=== PATIENT | female | born 1955 | race Caucasian/White ===

== ENCOUNTER → 2018-08-10 | Outpatient (CLI) | payer MEDICARE, MEDICAID ==
[2016-07-02 13:15] VITALS: BP 99/55
[~2018-08-10] MED LIST: ALPR0.5T PO; AMOX500C PO; AMOX500T PO; ATOR40TA59 PO; BUPR150T11 PO; CHOL500045 PO; CYAN10005 PO; CYCL5TAB PO; FENO145T30 PO; HYDR-3165 PO; IBUP800T19 PO; MAG DELAY64 MG PO; NAPR500T8 PO; PANT20TA58 PO; POTA20TA4 PO
--- NOTE | 2018-08-10 13:22 | RAD ---
CT HEAD INDICATION: CT HEAD - FELL ONE WEEK AGO, HIT HER HEAD ON FURNITURE LEFT FOREHEAD, FEELS UNSTEADY ON HER FEET COMPARISON: None Available. Exposure: One or more of the following individualized dose reduction techniques were utilized for this examination: 1. Automated exposure control 2. Adjustment of the mA and/or kV according to patient size 3. Use of iterative reconstruction technique TECHNIQUE: 5 mm contiguous axial images were obtained from the skull base to the vertex in both bone and soft tissue algorithm. FINDINGS: No abnormal attenuation within the brain parenchyma. No evidence of acute intracranial hemorrhage. No extra-axial fluid collections. No mass effect or midline shift. Ventricular size is appropriate. Basal cisterns are patent. No fractures identified.Sears-white differentiation is preserved.Globes and orbits are within normal limits. Paranasal sinuses and mastoid air cells are clear. IMPRESSION: No acute intracranial findings. Electronically signed by: Altaf Lee MD (08/10/2018 1:19 PM) [id number]
== END | disposition home or self-care (01) ==
LOC: CT 12:28
PROVIDERS: ATTEND Family Medicine
DX: R25.8 Other abnormal involuntary movements (principal); R41.3 Other amnesia; W01.190A Fall on same level from slipping, tripping and stumbling with subsequent striking against furniture, initial encounter; Y93.89 Activity, other specified; Y92.89 Other specified places as the place of occurrence of the external cause; Y99.8 Other external cause status
CPT/HCPCS: 70450

== ENCOUNTER → 2019-12-09 | Outpatient (CLI) | payer MEDICARE, MEDICAID ==
[2016-07-02 13:15] VITALS: BP 99/55
[~2019-12-09] MED LIST changes: +CYAN-25 PO; -CYAN10005 PO; +ESCITALOPRAM OX10 MG PO; +EZET10TA20 PO; +FENO145T3 PO; -FENO145T30 PO
== END | disposition home or self-care (01) ==
LOC: LAB 11:00
PROVIDERS: ATTEND Registered Nurse
DX: Z01.818 Encounter for other preprocedural examination (principal); Z11.59 Encounter for screening for other viral diseases; H26.9 Unspecified cataract
CPT/HCPCS: U0003-CS

== ENCOUNTER → 2019-12-13 | Day surgery (SDC) | payer MEDICARE, MEDICAID ==
[~2019-12-13] MED LIST changes: +BALANCED SALT IRRIG OPHTH SOLN 15 ML BOTTLE. IRR ONE; +CATARACT OPHTH GEL 0.5 ML SYRINGE. OS ONE; +CHONDROIT-SOD-HYALURONATE KIT. OS ONE; +EPINEPHrine AMPULE 0.5 MG in BALANCED SALT IRRIG SOLN PLUS 500 ML IO ONE; +ERYTHROMYCIN 0.5% OPHTH OINTMENT 1GM TUBE. OS ONE; +HYALURONIDASE 75UNITS in LIDOCAINE 2% PF OPHTH 10 ML SYRINGE. OS ONE; +IPRATRPIUM/ALBUTEROL 0.5/2.5MG 3 ML NEBU. NEB PRN; +IV RINGERS SOLUTION,LACTATED 1,000 ML IV SCH; +KETOROLAC TROMETHAMINE 0.5% OPHTH SOLUTION BOTTLE. ONE; +KETOROLAC TROMETHAMINE 0.5% OPHTH SOLUTION BOTTLE. OS SCH; +LIDO/EPI IN BSS OPHTH 4 ML SYRINGE OS ONE; +MIDAZOLAM HCL PF 2 MG/2 ML VIAL. IV ONE; +MOXIFLOXACIN 0.5% OPHTH SOLUTION 3ML BOTTLE. OS SCH; +POVIDONE-IODINE 5% OPHTH SOLUTION 30ML BOTTLE. OS ONE; +PROPOFOL 10,000 MCG/ML (20ML) VIAL IV ONE; +TETRACAINE 0.5% OPHTH SOLUTION 4ML BOTTLE. OS ONE; +TETRACAINE 0.5% OPHTH SOLUTION 4ML BOTTLE. OU ONE; +prednisoLONE ACETATE 1% OPHTH SUSPENSION 5ML BOTTLE. ONE; +prednisoLONE ACETATE 1% OPHTH SUSPENSION 5ML BOTTLE. OS SCH
[2019-12-13] MEDS: MOXIFLOXACIN 0.5% OPHTH SOLUTION 3ML BOTTLE. OS SCH ×3 (07:22→07:32)
[2019-12-13 09:01] VITALS: BP 144/81
--- NOTE | 2019-12-13 09:01 | PDOC4 ---
Phaco/IFIS w/o Ring/OS Date of Procedure: Dec 13, 2019 Preoperative Diagnosis: 1. Senile Cataract, Left Eye 2. Anticipated Intraoperative Floppy Iris Syndrome Posoperative Diagnosis: 1. Senile Cataract, Left Eye 2. Intraoperative Floppy Iris Syndrome Anesthesia: Local (Block) with monitored anesthesia care Surgeon: Rina Choi D.O. Procedure: Procdeure: Left Phacoemulsification with Intraocular Lens Implant Findings: Senile Cataract Intraoperative Floppy Iris Syndrome Indications: Worsening vision interfering with patient's lifestyle Narrative: After discussing the risks, complications and alternatives, including but not limited to loss of vision, infection, bleeding, swelling, anesthetic reaction, capsule rupture with vitreous loss, etc., the patient was given a peribulbar block under mild IV sedation and cardiac monitoring. Pressure was applied to the eye for approximately 10 minutes. The patient was transferred to the main operating room and was prepped and draped in the usual sterile fashion and positioned under the microscope. A lid speculum was placed. A temporal clear corneal incision was made with a keratome and epi-Shugarcaine was injected into the anterior chamber, this was followed by injecting viscoelastic. A side port incision was made. A continuous tear capsulorrhexis was performed, then hydrodissection was accomplished with balanced salt solution. The phacoemulsification needle was placed in the eye and the nucleus was emulsified. The remaining cortical material was removed with the irrigation and aspiration apparatus. The capsule was polished as needed. The posterior capsule was noted to be clean and intact. Viscoelastic was injected into the eye inflating the capsular bag. An intraocular lens was injected into the eye, unfolding as desired and was positioned in the capsular bag. The viscoelastic was aspirated from the eye. The wound edges were hydrated with balanced salt solution and there were no leaks. Viscoelastic was injected over the limbal incisions. Antibiotic and steroid were placed on the eye. The lid speculum was removed, the eye patched shut and a Edward shield applied. There were no complications and the patient was taken to the PACU in good condition. RINA CHOI DO Dec 13, 2019 09:01
== END | disposition home or self-care (01) ==
LOC: SURG 07:04
PROVIDERS: ATTEND Ophthalmology
DX: H25.812 Combined forms of age-related cataract, left eye (principal); H21.81 Floppy iris syndrome; E78.00 Pure hypercholesterolemia, unspecified; F17.210 Nicotine dependence, cigarettes, uncomplicated; J44.9 Chronic obstructive pulmonary disease, unspecified; M19.90 Unspecified osteoarthritis, unspecified site; K21.9 Gastro-esophageal reflux disease without esophagitis; F41.9 Anxiety disorder, unspecified; F32.9 Major depressive disorder, single episode, unspecified; Z79.899 Other long term (current) drug therapy; Z98.890 Other specified postprocedural states; Z86.73 Personal history of transient ischemic attack (TIA), and cerebral infarction without residual deficits
CPT/HCPCS: 66984; J0171; J2704; V2632

== ENCOUNTER → 2019-12-30 | Outpatient (CLI) | payer MEDICARE, MEDICAID ==
[2019-12-13 09:01] VITALS: BP 144/81
[~2019-12-30] MED LIST changes: -BALANCED SALT IRRIG OPHTH SOLN 15 ML BOTTLE. IRR ONE; -CATARACT OPHTH GEL 0.5 ML SYRINGE. OS ONE; -CHONDROIT-SOD-HYALURONATE KIT. OS ONE; -EPINEPHrine AMPULE 0.5 MG in BALANCED SALT IRRIG SOLN PLUS 500 ML IO ONE; -ERYTHROMYCIN 0.5% OPHTH OINTMENT 1GM TUBE. OS ONE; -HYALURONIDASE 75UNITS in LIDOCAINE 2% PF OPHTH 10 ML SYRINGE. OS ONE; -IPRATRPIUM/ALBUTEROL 0.5/2.5MG 3 ML NEBU. NEB PRN; -IV RINGERS SOLUTION,LACTATED 1,000 ML IV SCH; -KETOROLAC TROMETHAMINE 0.5% OPHTH SOLUTION BOTTLE. ONE; -KETOROLAC TROMETHAMINE 0.5% OPHTH SOLUTION BOTTLE. OS SCH; -LIDO/EPI IN BSS OPHTH 4 ML SYRINGE OS ONE; -MIDAZOLAM HCL PF 2 MG/2 ML VIAL. IV ONE; -MOXIFLOXACIN 0.5% OPHTH SOLUTION 3ML BOTTLE. OS SCH; -POVIDONE-IODINE 5% OPHTH SOLUTION 30ML BOTTLE. OS ONE; -PROPOFOL 10,000 MCG/ML (20ML) VIAL IV ONE; -TETRACAINE 0.5% OPHTH SOLUTION 4ML BOTTLE. OS ONE; -TETRACAINE 0.5% OPHTH SOLUTION 4ML BOTTLE. OU ONE; -prednisoLONE ACETATE 1% OPHTH SUSPENSION 5ML BOTTLE. ONE; -prednisoLONE ACETATE 1% OPHTH SUSPENSION 5ML BOTTLE. OS SCH
== END ==
LOC: LAB 10:03
PROVIDERS: ATTEND Registered Nurse
DX: Z20.828 Contact with and (suspected) exposure to other viral communicable diseases (principal)
CPT/HCPCS: U0003-CS

== ENCOUNTER → 2020-01-03 | Day surgery (SDC) | payer MEDICARE, MEDICAID ==
[~2020-01-03] MED LIST changes: +BALANCED SALT IRRIG OPHTH SOLN 15 ML BOTTLE. IRR ONE; +CATARACT OPHTH GEL 0.5 ML SYRINGE. OD ONE; +CHONDROIT-SOD-HYALURONATE KIT. OD ONE; +EPINEPHrine AMPULE 0.5 MG in BALANCED SALT IRRIG SOLN PLUS 500 ML IO ONE; +ERYTHROMYCIN 0.5% OPHTH OINTMENT 1GM TUBE. OD ONE; +HYALURONIDASE 75UNITS in LIDOCAINE 2% PF OPHTH 10 ML SYRINGE. OD ONE; +HYALURONIDASE 75UNITS in LIDOCAINE 2% PF OPHTH 10 ML SYRINGE. ONE; +IPRATRPIUM/ALBUTEROL 0.5/2.5MG 3 ML NEBU. NEB PRN; +IV RINGERS SOLUTION,LACTATED 1,000 ML IV SCH; +KETOROLAC TROMETHAMINE 0.5% OPHTH SOLUTION BOTTLE. OD SCH; +KETOROLAC TROMETHAMINE 0.5% OPHTH SOLUTION BOTTLE. ONE; +MIDAZOLAM HCL PF 2 MG/2 ML VIAL. IV ONE; +MOXIFLOXACIN 0.5% OPHTH SOLUTION 3ML BOTTLE. OD SCH; +POVIDONE-IODINE 5% OPHTH SOLUTION 30ML BOTTLE. OD ONE; +PROPOFOL 10,000 MCG/ML (20ML) VIAL IV ONE; +TETRACAINE 0.5% OPHTH SOLUTION 4ML BOTTLE. OD ONE; +TETRACAINE 0.5% OPHTH SOLUTION 4ML BOTTLE. OU ONE; +prednisoLONE ACETATE 1% OPHTH SUSPENSION 5ML BOTTLE. OD SCH; +prednisoLONE ACETATE 1% OPHTH SUSPENSION 5ML BOTTLE. ONE
[2020-01-03] MEDS: MOXIFLOXACIN 0.5% OPHTH SOLUTION 3ML BOTTLE. OD SCH ×3 (10:22→10:33)
[2020-01-03 11:35] VITALS: BP 131/82
--- NOTE | 2020-01-23 08:47 | PDOC4 ---
Phaco IOL/Cataract/OD Date of Procedure: Jan 23, 2020 Preoperative Diagnosis: Preoperative Diagnosis: Senile Cataract, Right Eye Postoperative Diagnosis: Senile Cataract, Right Eye Anesthesia: Local with monitored anesthesia care Surgeon: Rina Choi D.O. Procedure: Right Phacoemulsification with Intraocular Lens Implant Findings: Senile Cataract Indications: Worsening vision interfering with patient's lifestyle Narrative: After discussing the risks, complications and alternatives, including but not limited to loss of vision, infection, bleeding, swelling, anesthetic reaction, capsule rupture with vitreous loss, etc., the patient was given a peribulbar block under mild IV sedation and cardiac monitoring. Pressure was applied to the eye for approximately 10 minutes. The patient was transferred to the main operating room and was prepped and draped in the usual sterile fashion and positioned under the microscope. A lid speculum was placed. A temporal clear corneal incision was made with a keratome and viscoelastic was injected into the eye. A side port incision was made. A continuous tear capsulorrhexis was performed, then hydrodissection was accomplished with balanced salt solution. The phacoemulsification needle was placed in the eye and the nucleus was emulsified. The remaining cortical material was removed with the irrigation and aspiration apparatus. The capsule was polished as needed. The posterior capsule was noted to be clean and intact. Viscoelastic was injected into the eye inflating the capsular bag. An intraocular lens was injected into the eye, unfolding as desired and was positioned in the capsular bag. The viscoelastic was aspirated from the eye. The wound edges were hydrated with balanced salt solution and there were no leaks. Viscoelastic was injected over the limbal incisions. Antibiotic and steroid were placed on the eye. The lid speculum was removed, the eye patched shut and a Edward shield applied. There were no complications and the patient was taken to the PACU in good condition. RINA CHOI DO Jan 23, 2020 08:47
== END | disposition home or self-care (01) ==
LOC: SURG 08:56
PROVIDERS: ATTEND Ophthalmology
DX: H25.89 Other age-related cataract (principal); F17.210 Nicotine dependence, cigarettes, uncomplicated; F41.9 Anxiety disorder, unspecified; F32.9 Major depressive disorder, single episode, unspecified; E78.00 Pure hypercholesterolemia, unspecified; Z72.89 Other problems related to lifestyle; Z79.899 Other long term (current) drug therapy
CPT/HCPCS: 66984; J0171; J2704; V2632

== ENCOUNTER 2020-12-06 10:44 | Inpatient (IN) | payer MEDICARE, MEDICAID ==
[~2020-12-06] VITALS: Ht 152.4 cm; Wt 74.1 kg
[~2020-12-06 10:44] MED LIST changes: -BALANCED SALT IRRIG OPHTH SOLN 15 ML BOTTLE. IRR ONE; -CATARACT OPHTH GEL 0.5 ML SYRINGE. OD ONE; -CHONDROIT-SOD-HYALURONATE KIT. OD ONE; -EPINEPHrine AMPULE 0.5 MG in BALANCED SALT IRRIG SOLN PLUS 500 ML IO ONE; -ERYTHROMYCIN 0.5% OPHTH OINTMENT 1GM TUBE. OD ONE; -HYALURONIDASE 75UNITS in LIDOCAINE 2% PF OPHTH 10 ML SYRINGE. OD ONE; -HYALURONIDASE 75UNITS in LIDOCAINE 2% PF OPHTH 10 ML SYRINGE. ONE; -IPRATRPIUM/ALBUTEROL 0.5/2.5MG 3 ML NEBU. NEB PRN; -IV RINGERS SOLUTION,LACTATED 1,000 ML IV SCH; -KETOROLAC TROMETHAMINE 0.5% OPHTH SOLUTION BOTTLE. OD SCH; -KETOROLAC TROMETHAMINE 0.5% OPHTH SOLUTION BOTTLE. ONE; -MIDAZOLAM HCL PF 2 MG/2 ML VIAL. IV ONE; -MOXIFLOXACIN 0.5% OPHTH SOLUTION 3ML BOTTLE. OD SCH; -POVIDONE-IODINE 5% OPHTH SOLUTION 30ML BOTTLE. OD ONE; -PROPOFOL 10,000 MCG/ML (20ML) VIAL IV ONE; -TETRACAINE 0.5% OPHTH SOLUTION 4ML BOTTLE. OD ONE; -TETRACAINE 0.5% OPHTH SOLUTION 4ML BOTTLE. OU ONE; -prednisoLONE ACETATE 1% OPHTH SUSPENSION 5ML BOTTLE. OD SCH; -prednisoLONE ACETATE 1% OPHTH SUSPENSION 5ML BOTTLE. ONE
[2020-12-06] MEDS ORDERED: IV NORMAL SALINE 1,000ML 1,000 ML IV ONE (11:00)
[2020-12-06] MEDS ORDERED: ONDANSETRON PF 4 MG/2 ML VIAL. IVP ONE (11:00)
[2020-12-06 11:15] LABS: BASO % 0 % (0-3); EOS % 0 % (0-3); HEMATOCRIT 41.9 % (36.0-47.0); LYMPH # 0.9 x10^3/uL (1.0-4.8); LYMPH % 6 % (24-48); MEAN CORPUSCULAR HEMOGLOBIN 30 pg (25-35); MEAN CORPUSCULAR HGB CONC 34 g/dL (31-37); MEAN CORPUSCULAR VOLUME 91 fL (79-100); MONO # 0.9 x10^3/uL (0.0-1.1); MONO % 6 % (0-9); NEUT # 12.1 x10^3uL (1.8-7.7); NEUT % 88 % (31-73); PLATELET COUNT 295 x10^3/uL (140-400); RED BLOOD COUNT 4.62 x10^6/uL (3.50-5.40); RED CELL DISTRIBUTION WIDTH 14.5 % (11.5-14.5); WHITE BLOOD COUNT 13.9 x10^3/uL (4.0-11.0)
--- NOTE | 2020-12-06 11:20 | PHYS DOC ---
Past History Past Medical History: Anxiety, COPD, Depression, GERD, High Cholesterol, Pneumonia, Stroke Past Surgical History: Appendectomy, Hysterectomy, Other Smoking: Cigarettes, Less than 1pk/day Alcohol Use: None Drug Use: None General Adult EDM: Chief Complaint: MULTIPLE COMPLAINTS HPI: HPI: 65-year-old female presents with nausea, vomiting, diarrhea, cough. She took a home COVID-19 test and it was positive. The Covid test from her doctor's office is pending. She was not vaccinated for COVID-19. She does not have any significant shortness of breath. She is a half a pack a day smoker. She denies having COPD, but uses breathing treatments. She has never been on oxygen. This is day 4 of her illness. Review of Systems: Review of Systems: Constitutional: Fever Eyes: Denies change in visual acuity HENT: Denies nasal congestion or sore throat Respiratory: Cough without significant shortness of breath Cardiovascular: Denies chest pain or edema GI: Nausea, vomiting, diarrhea. Denies abdominal pain. : Denies dysuria Musculoskeletal: Denies back pain or joint pain Integument: Denies rash Neurologic: Headache. Denies focal weakness or sensory changes Endocrine: Denies polyuria or polydipsia Lymphatic: Denies swollen glands Psychiatric: Denies depression or anxiety Current Medications: Current Meds: Current Medications Medications (Trade) Dose Ordered Sig/Bonifacio Start Time Stop Time Status Last Admin Dose Admin Ondansetron HCl (Zofran) 4 mg 1X ONCE 12/06/20 11:00 12/06/20 11:01 UNV 12/06/20 11:04 4 MG Sodium Chloride 1,000 ml @ 1,000 mls/hr 1X ONCE 12/06/20 11:00 12/06/20 11:59 UNV 12/06/20 11:02 1,000 MLS/HR Allergies: Allergies: Allergies Coded Allergies Type Severity Reaction Last Updated Verified No Known Drug Allergies 12/27/19 No Physical Exam: PE: Constitutional: Well developed, well nourished, no acute distress, non-toxic appearance. [] HENT: Normocephalic, atraumatic, bilateral external ears normal, oropharynx moist, no oral exudates, nose normal. [] Eyes: PERRLA, EOMI, conjunctiva normal, no discharge. [] Neck: Normal range of motion, no tenderness, supple, no stridor. [] Cardiovascular:Heart rate regular rhythm, no murmur [] Lungs & Thorax: Coughing. Auscultation deferred due to isolation status. [] Abdomen: Bowel sounds normal, soft, no tenderness, no masses, no pulsatile peggy s. [] Skin: Warm, dry, no erythema, no rash. [] Back: No tenderness, no CVA tenderness. [] Extremities: No tenderness, no cyanosis, no clubbing, ROM intact, no edema. [] Neurologic: Alert and oriented X 3, normal motor function, normal sensory function, no focal deficits noted. [] Psychologic: Affect normal, judgement normal, mood normal. [] EKG: EKG: Sinus rhythm, rate 94, no ST elevation or depression. Leftward axis, [] Radiology/Procedures: Radiology/Procedures: [] Impressions: EXAM: Chest, single view. HISTORY: Covid 19. COMPARISON: 07/04/2016 FINDINGS: A frontal view of the chest is obtained. There is diffuse lower lobe predominant interstitial infiltrate superimposed on chronic appearing interstitial changes. There is no consolidation, pleural effusion or pneumothorax. There is a stable cardiac silhouette. IMPRESSION: Lower lobe predominant diffuse interstitial infiltrate superimposed on suspected chronic interstitial changes. Electronically signed by: Kirsten Oh MD (12/06/2020 11:34 AM) [id number] DICTATED AND SIGNED BY: KIRSTEN OH MD DATE: 12/06/20 1133 CC: JOSSIE MONET DO; MILAD STRAUSS MD ~MTH0 0 Heart Score: C/O Chest Pain: N/A Risk Factors: Risk Factors: DM, Current or recent (<one month) smoker, HTN, HLP, family history of CAD, obesity. Risk Scores: Score 0 - 3: 2.5% MACE over next 6 weeks - Discharge Home Score 4 - 6: 20.3% MACE over next 6 weeks - Admit for Clinical Observation Score 7 - 10: 72.7% MACE over next 6 weeks - Early Invasive Strategies Course & Med Decision Making: Course & Med Decision Making Pertinent Labs and Imaging studies reviewed. (See chart for details) The patient is in the low to mid 90s on room air. She has a frequent cough. The patient's chest x-ray shows pneumonia. This is likely COVID pneumonia, but I will cover her with azithromycin and rocephin. The patient's oxygen drops with any activity. She is on supplemental oxygen at this time. I spoke with Dr. Strauss and he has accepted the patient for admission. [] Robe Disclaimer: Dragjonny Disclaimer: This electronic medical record was generated, in whole or in part, using a voice recognition dictation system. Departure Departure: Impression: Primary Impression: Pneumonia due to COVID-19 virus Disposition: ADMITTED INPATIENT Admitting Physician: Milad Strauss Condition: STABLE Referrals: MILAD STRAUSS MD (PCP) Scripts Prednisone (PREDNISONE) 10 Mg Tablet 10 MG PO DAILY for asthma for 20 Days, #20 TAB Prov: MILAD STRAUSS MD 12/08/20 [Nicotine 21MG Patch] 1 PATCH PATCH No Conflict Check 1 PATCH TD DAILY for smoking for 30 Days, #30 Prov: MILAD STRAUSS MD 12/08/20 Ipratropium/Albuterol Sulfate (COMBIVENT RESPIMAT INHAL) 4 Gm Aer.w.adap 1 PUFF INH RTQID for asthma for 30 Days, #30 INH Prov: MILAD STRAUSS MD 12/08/20 Azithromycin (AZITHROMYCIN TABLET) 250 Mg Tablet 250 MG PO DAILY for covid for 5 Days, #5 TAB Prov: MILAD STRAUSS MD 12/08/20 JOSSIE MONET DO Dec 06, 2020 11:20
--- NOTE | 2020-12-06 11:23 | EKG ---
[address] [address] Test Date: 2020-12-06 Test Time: 10:59:52 Pat Name: WOJCIECH RAWLS Department: Room: Gender: F Accounting Recruiter: Everardo : 1955 Requested By: JOSSIE MONET Order Number: [id number] Reading MD: Measurements Intervals [place] Rate: 94 P: 33 [place]: 138 QRS: -4 QRSD: 94 T: 41 QT: 372 QTc: 471 Interpretive Statements SINUS RHYTHM LEFTWARD AXIS S1,S2,S3 PATTERN OTHERWISE NORMAL ECG RI6.02 No previous ECG available for comparison
[2020-12-06 11:26] LABS: CALCIUM 9.2 mg/dL (8.5-10.1); CREATININE 1.5 mg/dL (0.6-1.0); GFR 35.1
[2020-12-06] MEDS ORDERED: DEXAMETHASONE SOD PHOS 10 MG/ML VIAL. IV ONE (11:30)
[2020-12-06] MEDS ORDERED: ACETAMINOPHEN 500 MG TABLET PO ONE (11:30)
[2020-12-06 11:32] LABS: ALBUMIN 3.6 g/dL (3.4-5.0); ALBUMIN/GLOBULIN RATIO 0.9 (1.0-1.7); TOTAL BILIRUBIN 0.3 mg/dL (0.2-1.0); TOTAL PROTEIN 7.6 g/dL (6.4-8.2)
--- NOTE | 2020-12-06 11:37 | RAD ---
EXAM: Chest, single view. HISTORY: Covid 19. COMPARISON: 07/04/2016 FINDINGS: A frontal view of the chest is obtained. There is diffuse lower lobe predominant interstiti al infiltrate superimposed on chronic appearing interstitial changes. There is no consolidation, pleu ral effusion or pneumothorax. There is a stable cardiac silhouette. IMPRESSION: Lower lobe predominant diffuse interstitial infiltrate superimposed on suspected chronic interstitial changes. Electronically signed by: Kirsten Perdue MD (12/06/2020 11:34 AM) [id number]
[2020-12-06] MEDS ORDERED: AZITHROMYCIN 500 MG VIAL. IV ONE (12:27)
[2020-12-06] MEDS ORDERED: cefTRIAXone SODIUM 1 GM VIAL ONE (12:27)
[2020-12-06] MEDS ORDERED: IV NORMAL SALINE 250ML 250 ML ONE (12:27)
[2020-12-06] MEDS ORDERED: IV NORMAL SALINE 50ML 50 ML ONE (12:27)
[2020-12-06] MEDS ORDERED: AZITHROMYCIN 500 MG in IV NORMAL SALINE 250ML 250 ML IV ONE (12:30)
[2020-12-06] MEDS ORDERED: ACETAMINOPHEN 325 MG TABLET PO PRN (12:45)
[2020-12-06] MEDS ORDERED: ONDANSETRON PF 4 MG/2 ML VIAL. IVP PRN (12:45)
[2020-12-06 14:56] VITALS: BP 92/54
[2020-12-06] MEDS ORDERED: AZITHROMYCIN 250 MG TABLET. PO ONE (15:15)
[2020-12-06] MEDS ORDERED: HYDROcodone/APAP 5/325MG 1 TAB TABLET PO PRN (15:15)
[2020-12-06] MEDS ORDERED: ALPRAZolam 0.5 MG TABLET PO PRN (15:15)
[2020-12-06] MEDS ORDERED: FENO160T PO (15:40)
[2020-12-06] MEDS ORDERED: PANT40TA6 PO (15:40)
[2020-12-06] MEDS ORDERED: DOXE25CA PO (15:40)
[2020-12-06] MEDS ORDERED: ALPR0.5T6 PO (15:40)
[2020-12-06] MEDS ORDERED: POTA20TA4 PO (15:40)
--- NOTE | 2020-12-06 15:41 | NUR ---
NURSING NOTE HOME MEDICATIONS PT DOES NOT HAVE A LIST OF HOME MEDICATION. MEDICATIONS PUT IN VIA EXTERNAL MEDICATION HISTORY. NURSE GEGE TO VERIFY WITH PT UPON ASSESSMENT. ARMAND WELLS
[2020-12-06] MEDS ORDERED: IPRATRPIUM/ALBUTEROL 0.5/2.5MG 3 ML NEBU. NEB SCH (16:00)
[2020-12-06] MEDS: IPRATROPIUM/ALBUTEROL 20/100mcg/INH INHALER. INH SCH ×2 (17:19→20:00)
--- NOTE | 2020-12-06 17:46 | NUR ---
Pt admitted to the floor at approx 1500 via wheelchair and ER staff. Pt oriented to the room with the staff, routines and environment. Admission questionnaire reviewed and filled out with the pt and verified home medications with the pt as well . Pt prefers [facility] in [place] and states that she has been a smoker for over 40 years. Pt denies wanting smoking cessation material. Pt states that she has had a poor appetite for a few days. Pt states that she is here due to being dehydrated. Encouraged the pt to drink water as much as possible and benefits of water and Gatorade. Pt had daughter Jovanna which whom she lives with bring dinner to the hospital tonight. Will continue to monitor.
[2020-12-06] MEDS: NICOTINE 21MG PATCH. TD SCH (20:12)
[2020-12-06] MEDS: ENOXAPARIN 40 MG/0.4 ML SYRINGE. SQ SCH (20:12)
[2020-12-06] MEDS: LACTOBACILLUS RHAMNOSUS GG 1 CAPSULE. PO SCH (20:12)
[2020-12-06] MEDS: buPROPion SR 150 MG TABLET.SA PO SCH (20:13)
[2020-12-06] MEDS: FENOFIBRATE NANOCRYSTALLIZED 145 MG TABLET PO SCH (20:13)
[2020-12-06] MEDS: ATORVASTATIN CALCIUM 20 MG TABLET PO SCH (20:13)
[2020-12-06] MEDS: DEXAMETHASONE SOD PHOS 4 MG/ML VIAL. IVP SCH (20:14)
[2020-12-06] MEDS: DOXEPIN HCL 25 MG CAPSULE PO SCH (20:57)
[2020-12-06] MEDS ORDERED: DEXAMETHASONE SOD PHOS 4 MG/ML VIAL. IVP SCH (21:00)
[2020-12-06 21:12] VITALS: BP 100/63
[2020-12-07] MEDS: DEXAMETHASONE SOD PHOS 4 MG/ML VIAL. IVP SCH ×3 (05:45→22:01)
[2020-12-07 05:57] VITALS: BP 99/63
[2020-12-07] MEDS: LACTOBACILLUS RHAMNOSUS GG 1 CAPSULE. PO SCH ×2 (08:03→20:02)
[2020-12-07] MEDS: CITALOPRAM 20 MG TABLET. PO SCH (08:03)
[2020-12-07] MEDS: PANTOPRAZOLE 40 MG TABLET. PO SCH (08:03)
[2020-12-07] MEDS: FENOFIBRATE NANOCRYSTALLIZED 145 MG TABLET PO SCH ×2 (08:03→20:02)
[2020-12-07] MEDS: AZITHROMYCIN 250 MG TABLET. PO SCH (08:03)
[2020-12-07] MEDS: DOXEPIN HCL 25 MG CAPSULE PO SCH ×3 (08:04→20:02)
[2020-12-07] MEDS: NICOTINE 21MG PATCH. TD SCH (08:04)
[2020-12-07] MEDS: EZETIMIBE 10 MG TABLET PO SCH (08:04)
[2020-12-07] MEDS: buPROPion SR 150 MG TABLET.SA PO SCH ×2 (08:04→20:02)
[2020-12-07] MEDS: IPRATROPIUM/ALBUTEROL 20/100mcg/INH INHALER. INH SCH ×4 (08:05→20:01)
[2020-12-07] MEDS ORDERED: NON FORMULARY ITEM (Magnesium Chloride (Mag Delay) 64 MG) PO SCH (09:00)
[2020-12-07] MEDS ORDERED: CYANOCOBALAMIN (VITAMIN B-12) 1,000 MCG TABLET. PO SCH (09:00)
[2020-12-07] MEDS ORDERED: FENOFIBRATE NANOCRYSTALLIZED 145 MG TABLET PO SCH (09:00)
[2020-12-07 11:35] VITALS: BP 98/60
[2020-12-07 14:20] VITALS: BP 98/61
--- NOTE | 2020-12-07 14:30 | HP ---
ADMIT DATE: 12/06/2020 HISTORY OF PRESENT ILLNESS: A 65-year-old female with history of COVID-19. The patient has been attempted to be treated as an outpatient, became increasingly worse, presented with nausea, vomiting, diarrhea, cough with more increased shortness of breath. The patient continues occasionally to smoke, although the patient has made very little, if any, progress in the last 3-4 days. The patient also continues to show problems with her symptoms progressively getting worse. As a result of this, the patient came in through the Emergency Room where she was initially seen and treated accordingly and then admitted to the hospital for further evaluation on that situation as indicated. PAST MEDICAL HISTORY: Cataracts, history of stroke, TIAs, hypercholesterolemia, respiratory disease, emphysema, obesity, GERD, appendectomy, hysterectomy, depression, anxiety, substance abuse, smoker. The patient otherwise has sleep difficulties. ALLERGIES: The patient has no known allergies. FAMILY HISTORY: Not known. HOME MEDICATIONS: Zetia 10, fenofibrate 160, Lipitor 40, bupropion 150 b.i.d., Lexapro 10 mg, doxepin 25 mg t.i.d., Xanax 0.5 t.i.d., potassium chloride, Protonix 40 mg a day. SOCIAL HISTORY: As noted heavy smoker, probably 30-40 pack year history of smoking and denies hard alcohol use or drug use. The patient is a full code. REVIEW OF SYSTEMS: Does have a mild headache. Does have nausea, vomiting, diarrhea. Denies any visual changes. Denies chest pain per se, but does have increased shortness of breath. The patient otherwise denies abdominal pain, melena, hematochezia, or hematemesis and neurologically otherwise baseline, stable. PHYSICAL EXAMINATION: GENERAL: This is a pleasant white female, in moderate amount of distress, room air 90%. VITAL SIGNS: The patient's heart rate approximately 100. Temperature 99.2, respiratory rate 24. The patient's blood pressure 110/60, respiratory rate is noted 24. HEENT: Head is atraumatic, normocephalic. Eyes: PERRLA without jaundice. The mouth and throat were normal. NECK: Supple, without JVD or carotid bruits. No thyroidmegaly. LUNGS: Diminished throughout, poor movement of air. CARDIOVASCULAR: Regular sinus rhythm, S1, S2, without murmur, rub, thrill, or extra heart sounds. ABDOMEN: There is poor movement as noted. EXTREMITIES: No clubbing, cyanosis, nor edema. NEUROLOGIC: The patient was alert and oriented x3. LABORATORY DATA: The patient's chest x-ray, possible lower lobe infiltrative process as indicated. White count 14,000. The patient's alkaline phosphatase 143. The patient continues to be monitored carefully. Continue on IV antibiotic therapy. IMPRESSION: COVID-19 pneumonia, respiratory distress secondary to COVID-19, emphysema, tobacco abuse, hypotension. PLAN: As above. Continue with IV fluids, IV antibiotic therapy and make further evaluation as indicated. BHAVIK DR: Sudhir TID: [id number]
--- NOTE | 2020-12-07 18:14 | NUR ---
Nursing Note Pt slept most of the day and complained of no pain, nausea, vomiting, or diarrhea. Pt ate meals brought by family. Pt had an intermittent cough early in the morning. Pt refused to wear oxygen all day and satted in the low 90's. Pt educated on the importance of wearing her oxygen. Pt used her inhaler as prescribed. Pt received her IV therapy in the afternoon and tolerated it well with no adverse reactions. Pt had a low grade fever in the early afternoon.
[2020-12-07 20:00] VITALS: BP 106/67
[2020-12-07] MEDS: ENOXAPARIN 40 MG/0.4 ML SYRINGE. SQ SCH (20:01)
[2020-12-07] MEDS: POTASSIUM CHLORIDE 20 MEQ TABLET.ER. PO SCH (20:01)
[2020-12-07] MEDS: ATORVASTATIN CALCIUM 20 MG TABLET PO SCH (20:02)
[2020-12-07 22:05] VITALS: BP 100/63
--- NOTE | 2020-12-08 03:15 | NUR ---
Nursing note: Pt slept much of shift. Pt refused to keep O2 on, continued to sat at 92%. Pt had intermittent cough, no n/v/d.
[2020-12-08] MEDS: DEXAMETHASONE SOD PHOS 4 MG/ML VIAL. IVP SCH (05:33)
[2020-12-08 05:48] VITALS: BP 129/76
[2020-12-08] MEDS: POTASSIUM CHLORIDE 20 MEQ TABLET.ER. PO SCH (08:17)
[2020-12-08] MEDS: buPROPion SR 150 MG TABLET.SA PO SCH (08:17)
[2020-12-08] MEDS: LACTOBACILLUS RHAMNOSUS GG 1 CAPSULE. PO SCH (08:18)
[2020-12-08] MEDS: CITALOPRAM 20 MG TABLET. PO SCH (08:18)
[2020-12-08] MEDS: FENOFIBRATE NANOCRYSTALLIZED 145 MG TABLET PO SCH (08:18)
[2020-12-08] MEDS: DOXEPIN HCL 25 MG CAPSULE PO SCH (08:18)
[2020-12-08] MEDS: PANTOPRAZOLE 40 MG TABLET. PO SCH (08:18)
[2020-12-08] MEDS: AZITHROMYCIN 250 MG TABLET. PO SCH (08:18)
[2020-12-08] MEDS: EZETIMIBE 10 MG TABLET PO SCH (08:18)
[2020-12-08] MEDS: IPRATROPIUM/ALBUTEROL 20/100mcg/INH INHALER. INH SCH (08:18)
[2020-12-08] MEDS: NICOTINE 21MG PATCH. TD SCH (08:19)
[2020-12-08] MEDS ORDERED: AZIT250T6 PO (08:58)
[2020-12-08] MEDS ORDERED: Nicotine 21MG Patch TD (08:58)
[2020-12-08] MEDS ORDERED: IPRA4AER INH (08:58)
[2020-12-08] MEDS ORDERED: PRED-220 PO ×2 (08:58→08:59)
--- NOTE | 2020-12-08 10:47 | NUR ---
DISCHARGE: PT SIGNED DISCHARGE PAPERWORK AND DISCUSSED DISCHARGE INSTRUCTIONS WERE GIVEN. PT'S IV WAS D/C'D AND BELONGINGS WERE SENT WITH PATIENT. PT WAS WALKED OUT AND PT'S FAMILY MEMBER PICKED HER UP. PT DISCHARGED FROM HOSPITAL AT THIS TIME.
== END 2020-12-08 10:45 | disposition home or self-care (01) | DRG 177 ==
LOC: ER 10:44 → 1 SOUTH 12:44
PROVIDERS: ADMIT Family Medicine; ATTEND Family Medicine
DX: U07.1 COVID-19 (principal); J12.82 Pneumonia due to coronavirus disease 2019; F17.210 Nicotine dependence, cigarettes, uncomplicated; J43.9 Emphysema, unspecified; E78.00 Pure hypercholesterolemia, unspecified; E66.9 Obesity, unspecified; F32.9 Major depressive disorder, single episode, unspecified; F41.9 Anxiety disorder, unspecified; K21.9 Gastro-esophageal reflux disease without esophagitis; Z86.73 Personal history of transient ischemic attack (TIA), and cerebral infarction without residual deficits; R06.03 Acute respiratory distress; Z90.49 Acquired absence of other specified parts of digestive tract; Z90.710 Acquired absence of both cervix and uterus; Z68.31 Body mass index [BMI] 31.0-31.9, adult
CPT/HCPCS: 36415; 71045; 80053; 83605; 84484; 85025; 93005; 96361; 96365; 96366; 96375; 99406; J0456; J0696; J1100; J1650; J2405; J7050; U0003; 99285-25; J7030

== ENCOUNTER 2020-12-12 11:39 | Inpatient (IN) | payer MEDICARE, MEDICAID ==
[~2020-12-12] VITALS: Ht 152.4 cm; Wt 74.1 kg
[~2020-12-12 11:39] MED LIST changes: +ALPR0.5T6 PO; +AZIT250T6 PO; +DOXE25CA PO; +FENO160T PO; +IPRA4AER INH; +Nicotine 21MG Patch TD; +PANT40TA6 PO; +PRED-220 PO
--- NOTE | 2020-12-12 12:20 | PHYS DOC ---
Past History Past Medical History: Anxiety, COPD, Depression, GERD, High Cholesterol, Pneumonia, Stroke Past Surgical History: Appendectomy, Hysterectomy Smoking: Cigarettes, Less than 1pk/day Alcohol Use: None Drug Use: None General Adult EDM: Chief Complaint: SHORTNESS OF BREATH HPI: HPI: Patient is a 66-year-old female coming in for shortness of breath. Patient also has a cough. Was diagnosed with COVID-19 1 week ago and has symptoms of the past week. Patient states she has a history of asthma and uses inhaler. Also has a long-term history of tobacco use but states she has not smoked over the past week. She did not get her COVID-19 vaccination because she is "afraid of needles" Review of Systems: Review of Systems: All other systems within normal limits except for as noted in the HPI Allergies: Allergies: Allergies Coded Allergies Type Severity Reaction Last Updated Verified No Known Drug Allergies 12/27/19 No Physical Exam: PE: Constitutional: Well developed, well nourished, no acute distress, non-toxic appearance. [] HENT: Normocephalic, atraumatic, bilateral external ears normal, nose normal. [] Eyes: PERRLA, conjunctiva normal, no discharge. [] Neck: No rigidity, supple, no stridor. [] Cardiovascular: Regular rate and rhythm, brisk cap refill [] Lungs & Thorax: Non labored symmetric respirations, no tachypnea or respiratory distress [] Abdomen: Soft, nondistended. Skin: Warm, dry, no erythema, no rash. [] Back: Unremarkable Extremities: No deformities, range of motion grossly intact, no lower extremity edema [] Neurologic: Alert and oriented X 3, no focal deficits noted. [] Psychologic: Affect normal, judgement normal, mood normal. [] Current Patient Data: Vital Signs: Vital Signs Date Time Temp Pulse Resp B/P (MAP) Pulse Ox O2 Delivery O2 Flow Rate FiO2 12/12/20 12:12 98.7 105 30 148/94 83 Room Air EKG: EKG: Sinus rhythm, heart rate 97 bpm, left axis deviation, no ST elevation or depression, T waves unremarkable [] Radiology/Procedures: Radiology/Procedures: [][address] [address] IMAGING REPORT Signed PATIENT: WOJCIECH RAWLS ACCOUNT: [id number] : 1955 LOCATION: ER AGE: 65 SEX: F EXAM STATUS: REG ER ORD. PHYSICIAN: ANA ACEVEDO MD REASON: hypoxic, OMNI 350, 75ml PROCEDURE: CT ANGIOGRAPHY CHEST Exam Date: 12/12/2020 2:25 PM CTA CHEST Indication: Reason: hypoxic, OMNI 350, 75ml / Spl. Instructions: / History: . TECHNIQUE: CT angiogram of the chest was performed following the adm inistration of nonionic intravenous contrast for evaluation of pulmonary embolus. 3D MIPs were created and reviewed on an independent workstation to assist in diagnosis and clinical management. One or more of the following dose reduction techniques were utilized: *Automated exposure control (AEC) *Adjustment of mA and/or kV according to patient size *Use of iterative reconstruction technique *CT scan done according to ALARA, or ALARA/IMAGE GENTLY FINDINGS: There is adequate opacification of the pulmonary arteries. No central intravascular filling defects are appreciated. There is no evidence for central pulmonary embolus. The aorta is normal in caliber without evidence for dissection. Aortic calcifications are present. The heart is normal in size without pericardial effusion. Coronary artery calcifications are present. The visualized thyroid gland is within normal limits. No lymphadenopathy is seen. There are mild emphysematous changes bilaterally. Subpleural reticular markings in the upper lobes are suggestive of scarring. There are bibasilar predominantly peripheral infiltrates with groundglass opacities and septal thickening consistent with multifocal pneumonia. Underlying interstitial fibrosis is not excluded. The central airways are patent. There is no pleural effusion or pneumothorax. Images of the upper abdomen demonstrate gallstones. Degenerative changes are seen in the spine. IMPRESSION: No evidence for central pulmonary embolus. Bilateral multifocal pneumonia. Follow-up imaging to resolution is recommended. Mild emphysematous changes. Underlying fibrosis in the lung bases is not excluded. Electronically signed by: Segun Carballo MD (12/12/2020 2:41 PM) [id number] DICTATED AND SIGNED BY: SEGUN CARBALLO MD DATE: 12/12/20 1429 CC: ANA ACEVEDO MD; MILAD STRAUSS MD ~MTH0 0 Heart Score: C/O Chest Pain: No HEART Score for Chest Pain: HEART Score for Chest Pain Response (Comments) Value History Slighlty/Non-Suspicious 0 ECG Normal 0 Age >45 - < 65 1 Risk Factors 1 or 2 Risk Factors 1 Total 2 Risk Factors: Risk Factors: DM, Current or recent (<one month) smoker, HTN, HLP, family history of CAD, obesity. Risk Scores: Score 0 - 3: 2.5% MACE over next 6 weeks - Discharge Home Score 4 - 6: 20.3% MACE over next 6 weeks - Admit for Clinical Observation Score 7 - 10: 72.7% MACE over next 6 weeks - Early Invasive Strategies Course & Med Decision Making: Course & Med Decision Making Pertinent Labs and Imaging studies reviewed. (See chart for details) Patient was satting 81% on room air, does not use home oxygen. Satting in mid to low 90s on 5 L nasal cannula. Admit to her primary care provider for further treatment [] Dragon Disclaimer: Dragon Disclaimer: This electronic medical record was generated, in whole or in part, using a voice recognition dictation system. Departure Departure: Impression: Primary Impression: Pneumonia due to COVID-19 virus Disposition: ADMITTED INPATIENT Admitting Physician: Milad Strauss Condition: STABLE Referrals: MILAD STRAUSS MD (PCP) ANA ACEVEDO MD Dec 12, 2020 12:20
[2020-12-12] MEDS ORDERED: AZITHROMYCIN 500 MG in IV NORMAL SALINE 250ML 250 ML IV ONE (12:45)
[2020-12-12] MEDS ORDERED: DEXAMETHASONE SOD PHOS 10 MG/ML VIAL. IVP ONE (12:45)
--- NOTE | 2020-12-12 12:51 | RAD ---
EXAM: CHEST ONE VIEW. HISTORY: Elevated. COMPARISON: 12/06/2020. FINDINGS: A frontal view of the chest is obtained. There are airspace infiltrates in the right greater than left bases. These have increased since the p rior study. Hyperinflation is consistent with chronic obstructive pulmonary disease. There is no pneu mothorax or pleural effusion. The heart is not enlarged. IMPRESSION: 1. Multifocal pneumonia has increased since the prior study. Electronically signed by: Carlyle Dowd MD (12/12/2020 12:48 PM) [id number]
[2020-12-12 12:56] LABS: CALCIUM 9.2 mg/dL (8.5-10.1); CREATININE 1.1 mg/dL (0.6-1.0); GFR 50.2; POTASSIUM 4.9 mmol/L (3.5-5.1)
[2020-12-12 13:08] LABS: ALBUMIN 3.1 g/dL (3.4-5.0); ALBUMIN/GLOBULIN RATIO 0.8 (1.0-1.7); BASO % 0 % (0-3); EOS % 0 % (0-3); HEMATOCRIT 41.5 % (36.0-47.0); HEMOGLOBIN 13.9 g/dL (12.0-15.5); LYMPH # 1.1 x10^3/uL (1.0-4.8); LYMPH % 11 % (24-48); MAGNESIUM 2.1 mg/dL (1.8-2.4); MEAN CORPUSCULAR HEMOGLOBIN 30 pg (25-35); MEAN CORPUSCULAR HGB CONC 34 g/dL (31-37); MEAN CORPUSCULAR VOLUME 90 fL (79-100); MONO # 0.9 x10^3/uL (0.0-1.1); MONO % 9 % (0-9); NEUT # 7.8 x10^3uL (1.8-7.7); NEUT % 79 % (31-73); PLATELET COUNT 362 x10^3/uL (140-400); RED BLOOD COUNT 4.62 x10^6/uL (3.50-5.40); RED CELL DISTRIBUTION WIDTH 14.8 % (11.5-14.5); TOTAL BILIRUBIN 0.6 mg/dL (0.2-1.0); TOTAL PROTEIN 7.1 g/dL (6.4-8.2); WHITE BLOOD COUNT 9.9 x10^3/uL (4.0-11.0)
[2020-12-12] MEDS ORDERED: IV NORMAL SALINE 250ML 250 ML ONE (13:29)
[2020-12-12] MEDS ORDERED: cefTRIAXone SODIUM 1 GM VIAL ONE (13:29)
[2020-12-12] MEDS ORDERED: AZITHROMYCIN 500 MG VIAL. IV ONE (13:29)
[2020-12-12] MEDS ORDERED: IV NORMAL SALINE 50ML 50 ML ONE (13:29)
[2020-12-12] MEDS ORDERED: IOHEXOL 350 MG/ML 100 ML VIAL. IV ONE (14:00)
--- NOTE | 2020-12-12 14:43 | RAD ---
Exam Date: 12/12/2020 2:25 PM CTA CHEST Indication: Reason: hypoxic, OMNI 350, 75ml / Spl. Instructions: / History: . TECHNIQUE: CT angiogram of the chest was performed following the administration of nonionic intrave nous contrast for evaluation of pulmonary embolus. 3D MIPs were created and reviewed on an [employer] workstation to assist in diagnosis and clinical management. One or more of the following dose red uction techniques were utilized: *Automated exposure control (AEC) *Adjustment of mA and/or kV according to patient size *Use of iterative reconstruction technique *CT scan done according to ALARA, or ALARA/IMAGE GENTLY FINDINGS: There is adequate opacification of the pulmonary arteries. No central intravascular filling defects are appreciated. There is no evidence for central pulmonary embolus. The aorta is normal in caliber without evidence for dissection. Aortic calcifications are present. The heart is normal in size without pericardial effusion. Coronary artery calcifications are present . The visualized thyroid gland is within normal limits. No lymphadenopathy is seen. There are mild emphysematous changes bilaterally. Subpleural reticular markings in the upper lobes a re suggestive of scarring. There are bibasilar predominantly peripheral infiltrates with groundglass opacities and septal thickening consistent with multifocal pneumonia. Underlying interstitial fibro sis is not excluded. The central airways are patent. There is no pleural effusion or pneumothorax. Images of the upper abdomen demonstrate gallstones. Degenerative changes are seen in the spine. IMPRESSION: No evidence for central pulmonary embolus. Bilateral multifocal pneumonia. Follow-up imaging to resolution is recommended. Mild emphysematous changes. Underlying fibrosis in the lung bases is not excluded. Electronically signed by: Isaac Carballo MD (12/12/2020 2:41 PM) [id number]
[2020-12-12] MEDS ORDERED: MORPHINE SULFATE 2 MG/ML DISP.SYRIN. IVP PRN (15:00)
[2020-12-12] MEDS ORDERED: ONDANSETRON PF 4 MG/2 ML VIAL. IVP PRN (15:00)
[2020-12-12] MEDS ORDERED: ACETAMINOPHEN 325 MG TABLET PO PRN (15:00)
--- NOTE | 2020-12-12 15:21 | EKG ---
[address] [address] Test Date: 2020-12-12 Test Time: 12:52:24 Pat Name: WOJCIECH RAWLS Department: Room: Gender: F Brusher Hand: KAMRON : 1955 Requested By: ANA ACEVEDO Order Number: [id number] Reading MD: Measurements Intervals [place] Rate: 97 P: 40 DE: 132 QRS: -6 QRSD: 88 T: 33 QT: 358 QTc: 459 Interpretive Statements SINUS RHYTHM LEFTWARD AXIS OTHERWISE NORMAL ECG RI6.02 No previous ECG available for comparison
[2020-12-12 20:30] VITALS: BP 115/77
--- NOTE | 2020-12-12 23:23 | NUR ---
The patient, WOJCIECH RAWLS, 65 y/o, F admitted by MILAD STRAUSS MD, was given written information regarding hospital policies, unit procedures and contact persons. Valuables were checked and vital signs obtained. PT tested COVID+ last Thursday, admitted and discharged last week from [facility]. PT with increased SOB today, admitted for same. PT does not remember all of her medications or doses. Reviewed with PT her PMH, PSH, SH, FH and medications.
[2020-12-12 23:37] VITALS: BP 111/71
[2020-12-13 05:50] VITALS: BP 125/82
[2020-12-13] MEDS ORDERED: ALPRAZolam 0.5 MG TABLET PO PRN (08:30)
[2020-12-13] MEDS: NICOTINE 21MG PATCH. TD SCH (09:33)
[2020-12-13] MEDS: IPRATROPIUM/ALBUTEROL 20/100mcg/INH INHALER. INH SCH ×4 (09:33→20:35)
[2020-12-13] MEDS: DOXEPIN HCL 25 MG CAPSULE PO SCH ×3 (09:34→20:37)
[2020-12-13] MEDS: buPROPion SR 150 MG TABLET.SA PO SCH ×2 (09:34→20:37)
[2020-12-13] MEDS: LACTOBACILLUS RHAMNOSUS GG 1 CAPSULE. PO SCH ×2 (09:34→20:37)
[2020-12-13] MEDS: POTASSIUM CHLORIDE 20 MEQ TABLET.ER. PO SCH ×3 (09:34→20:55)
[2020-12-13] MEDS: AZITHROMYCIN 250 MG TABLET. PO SCH (09:34)
[2020-12-13] MEDS: FENOFIBRATE NANOCRYSTALLIZED 145 MG TABLET PO SCH (09:34)
[2020-12-13] MEDS: EZETIMIBE 10 MG TABLET PO SCH (09:34)
[2020-12-13] MEDS: PANTOPRAZOLE 40 MG TABLET. PO SCH (09:34)
[2020-12-13] MEDS: CITALOPRAM 20 MG TABLET. PO SCH (09:34)
[2020-12-13 11:07] VITALS: BP 114/77
[2020-12-13 16:04] VITALS: BP 114/67
[2020-12-13] MEDS ORDERED: ENOXAPARIN 40 MG/0.4 ML SYRINGE. SQ SCH (18:30)
--- NOTE | 2020-12-13 19:29 | HP ---
HISTORY OF PRESENT ILLNESS: The patient is a 65-year-old female with history of COVID-19 pneumonia. The patient apparently has had a relapse. She has been home, doing fairly well, until a couple days prior to admission when she began to have increased shortness of breath. The patient notes she is unable to control her breathing with her albuterol inhaler and she continues to smoke unfortunately even though decrease this has still been a problem for this patient. The patient otherwise is extremely short of breath. Oxygen saturation down to the mid 80s. She was seen initially in the Emergency Room and then transferred eventually up to the floor for further evaluation and treatment. PAST MEDICAL HISTORY: COVID-19 pneumonia, cataract removal, TIA, heart attack with stents, cardiac catheterization, hypercholesterolemia, emphysema, respiratory disorders, appendectomy, obesity, GERD, hysterectomy, oliguria, reproductive disorders, hysterectomy, psychiatric problems, depression, anxiety, substance abuse and is a smoker. FAMILY HISTORY: Positive for rheumatoid arthritis in a brother, breast cancer in her sister, brain cancer in her mother, asthma in a brother. Alcohol abuse, hypertension, family history of other problems including bone cancer. ALLERGIES: The patient has no known drug allergies. SOCIAL HISTORY: The patient associates about a [id number] history of smoking, continues to smoke. Denies any hard alcohol use, occasional alcohol use. Otherwise, unremarkable. She is a full code. MEDICATIONS: Azithromycin 250 mg a day, , Combivent inhaler, Zetia, fenofibrate, bupropion 150 daily, nicotine, prednisone 10 mg, Protonix. REVIEW OF SYSTEMS: Increased shortness of breath. No chest pain. No nausea, vomiting, melena, hematochezia or hematemesis. Neurologically, the patient is stable in that regard or baseline as it is noted. PHYSICAL EXAMINATION: GENERAL: This is a pleasant white female, continues to be monitored. VITAL SIGNS: Blood pressure that of 110/70, respiratory rate 20, pulse 80, afebrile. Initial, 83% on room air, 88% on nasal cannula at 3 liters, pulse was 105, respiratory rate was 30 when entering into to the door. The patient may have a reoccurrence of a hospital-acquired pneumonia since she was just in the hospital and obviously is a high risk for such. HEENT: Otherwise, the head was atraumatic, normocephalic. Eyes: PERRLA without jaundice. The mouth and throat were normal. NECK: Supple thyromegaly. LUNGS: Diminished throughout, poor movement of air. CARDIOVASCULAR: Regular sinus rhythm. Tachy. ABDOMEN: Soft, nontender, no rebound or guarding. Positive bowel sounds. EXTREMITIES: No clubbing, cyanosis, nor edema. NEUROLOGIC: The patient is alert and oriented x3. LABORATORY DATA: Show sodium 138, potassium 4.9. BUN and creatinine 23 and 1.1, glucose 140. White count 9.9, hemoglobin 13.9 and 41. The patient will be admitted for further evaluation. IMPRESSION: Acute respiratory failure, bilateral multifocal pneumonia. The patient placed on Zosyn because of possible reoccurrence or hospital-acquired pneumonia as well as azithromycin. Acute respiratory failure, the patient was placed on oxygen, Combivent inhaler. Make further aggressive pulmonary toilet on her. Also consider Decadron or Solu-Medrol for her breathing problems. The patient otherwise continued to be monitored carefully since she has had a relapse of her COVID and that is still pending as we repeated that test down in the Emergency Room. SHANIKA/FRANCINE DR: SHREE/jamie TID: [id number]
[2020-12-13 19:59] VITALS: BP 103/67
[2020-12-13] MEDS: ATORVASTATIN CALCIUM 20 MG TABLET PO SCH (20:36)
[2020-12-13] MEDS: methylPREDNISolone SOD SUCC PF 40 MG/ML VIAL. IV SCH (20:36)
[2020-12-13] MEDS: ENOXAPARIN 40 MG/0.4 ML SYRINGE. SQ SCH ×2 (20:36→20:55)
--- NOTE | 2020-12-13 20:55 | NUR ---
PT refused potassium and Lovenox (potassium because she stated she choked on it earlier and Lovenox because she just does not want it). Explained to PT the reasoning behind Lovenox associated with COVID and inactivity. PT still denied.
[2020-12-13] MEDS: PIPERACILLIN/TAZOBACTAM 3.375 GM in IV NORMAL SALINE 50ML 50 ML IV SCH (22:36)
[2020-12-13 23:31] VITALS: BP 101/63
[2020-12-14 05:51] VITALS: BP 116/71
[2020-12-14] MEDS: PIPERACILLIN/TAZOBACTAM 3.375 GM in IV NORMAL SALINE 50ML 50 ML IV SCH ×3 (06:29→22:51)
[2020-12-14] MEDS: LACTOBACILLUS RHAMNOSUS GG 1 CAPSULE. PO SCH ×2 (07:47→22:51)
[2020-12-14] MEDS: EZETIMIBE 10 MG TABLET PO SCH (07:47)
[2020-12-14] MEDS: POTASSIUM CHLORIDE 20 MEQ TABLET.ER. PO SCH ×3 (07:47→22:51)
[2020-12-14] MEDS: FENOFIBRATE NANOCRYSTALLIZED 145 MG TABLET PO SCH (07:47)
[2020-12-14] MEDS: AZITHROMYCIN 250 MG TABLET. PO SCH (07:48)
[2020-12-14] MEDS: CITALOPRAM 20 MG TABLET. PO SCH (07:48)
[2020-12-14] MEDS: methylPREDNISolone SOD SUCC PF 40 MG/ML VIAL. IV SCH ×3 (07:48→22:52)
[2020-12-14] MEDS: IPRATROPIUM/ALBUTEROL 20/100mcg/INH INHALER. INH SCH ×4 (07:49→20:00)
[2020-12-14] MEDS: DOXEPIN HCL 25 MG CAPSULE PO SCH ×3 (07:49→22:52)
[2020-12-14] MEDS: NICOTINE 21MG PATCH. TD SCH (07:49)
[2020-12-14] MEDS: PANTOPRAZOLE 40 MG TABLET. PO SCH (07:50)
[2020-12-14] MEDS: buPROPion SR 150 MG TABLET.SA PO SCH ×2 (07:50→22:52)
[2020-12-14 11:18] VITALS: BP 113/69
[2020-12-14 16:23] VITALS: BP 117/71
[2020-12-14] MEDS: ENOXAPARIN 40 MG/0.4 ML SYRINGE. SQ SCH (21:00)
[2020-12-14 21:27] VITALS: BP 124/69
[2020-12-14] MEDS: ATORVASTATIN CALCIUM 20 MG TABLET PO SCH (22:51)
--- NOTE | 2020-12-15 01:29 | PN ---
SUBJECTIVE: The patient is resting fairly comfortably this morning, came in with respiratory distress last night and respiratory failure was in the low 80s. The patient otherwise seems to be resting fairly comfortably. She is on aggressive pulmonary toilet and making fairly good progress overall in that regard. OBJECTIVE: VITAL SIGNS: Blood pressure 116/70, respiration 18, pulse 70, afebrile. She is on 5 liters at 92%. GENERAL: The patient otherwise is alert and oriented. Speech fluent, spontaneous, appropriate. LUNGS: Diminished throughout. Poor movement of air. CARDIOVASCULAR: Regular sinus rhythm. ABDOMEN: Soft, nontender. SARS was negative. IMPRESSION: 1. Acute respiratory failure. 2. Bilateral multifocal pneumonia. PLAN: The patient was placed on IV antibiotic therapy, aggressive pulmonary toilet. Will make further evaluation on her per those results. NIA/TRAVIS DR: Sudhir TID: [id number]
[2020-12-15] MEDS: PIPERACILLIN/TAZOBACTAM 3.375 GM in IV NORMAL SALINE 50ML 50 ML IV SCH ×3 (06:00→22:19)
[2020-12-15] MEDS: POTASSIUM CHLORIDE 20 MEQ TABLET.ER. PO SCH ×2 (08:38→21:00)
[2020-12-15] MEDS: PANTOPRAZOLE 40 MG TABLET. PO SCH (08:38)
[2020-12-15] MEDS: LACTOBACILLUS RHAMNOSUS GG 1 CAPSULE. PO SCH ×2 (08:38→22:10)
[2020-12-15] MEDS: FENOFIBRATE NANOCRYSTALLIZED 145 MG TABLET PO SCH (08:38)
[2020-12-15] MEDS: buPROPion SR 150 MG TABLET.SA PO SCH ×2 (08:38→22:10)
[2020-12-15] MEDS: CITALOPRAM 20 MG TABLET. PO SCH (08:38)
[2020-12-15] MEDS: EZETIMIBE 10 MG TABLET PO SCH (08:38)
[2020-12-15] MEDS: IPRATROPIUM/ALBUTEROL 20/100mcg/INH INHALER. INH SCH ×4 (08:39→20:00)
[2020-12-15] MEDS: methylPREDNISolone SOD SUCC PF 40 MG/ML VIAL. IV SCH ×3 (08:39→22:10)
[2020-12-15] MEDS: NICOTINE 21MG PATCH. TD SCH (08:39)
[2020-12-15] MEDS: AZITHROMYCIN 250 MG TABLET. PO SCH (08:39)
[2020-12-15] MEDS: DOXEPIN HCL 25 MG CAPSULE PO SCH ×3 (08:39→22:10)
[2020-12-15 11:52] VITALS: BP 137/88
--- NOTE | 2020-12-15 12:44 | RAD ---
XR CHEST 2V History: Reason: pnuemonia / Spl. Instructions: / History: Comparison: December 12, 2020 Findings: Moderate multifocal pulmonary opacities, unchanged. No pleural effusion. No pneumothorax. Hyperinflat ion. Unchanged heart size. Impression: 1. Moderate multifocal pulmonary opacities, similar compared to prior. Electronically signed by: Crow Mortensen DO (12/15/2020 12:42 PM) [facility]
[2020-12-15 16:21] VITALS: BP 133/78
[2020-12-15 20:04] VITALS: BP 159/84
[2020-12-15] MEDS: ENOXAPARIN 40 MG/0.4 ML SYRINGE. SQ SCH (21:00)
[2020-12-15] MEDS: ATORVASTATIN CALCIUM 20 MG TABLET PO SCH (22:11)
[2020-12-15 23:00] VITALS: BP 121/74
--- NOTE | 2020-12-16 00:19 | PN ---
DATE: 12/15/2020 SUBJECTIVE: A 65-year-old female in with COVID-19 pneumonia, acute respiratory failure. Still requiring approximately 4-5 liters to keep her oxygen above 90 and below 92. Otherwise, she says she feels better. OBJECTIVE: VITAL SIGNS: Blood pressure 133/78, respirations 18, pulse 70, afebrile. GENERAL: The patient is alert and oriented. LUNGS: Diminished, poor movement of air. CARDIOVASCULAR: Stable. ABDOMEN: Soft, nontender. IMPRESSION: COVID-19 pneumonia, acute respiratory failure with hypoxia. PLAN: Continue to monitor the patient accordingly and tapering down on steroids. Continue receiving aggressive pulmonary toilet as indicated. We will repeat her chest x-ray which was reported back shows very modest improvement there. AIDA DR: SHREE/jamie TID: [id number]
[2020-12-16] MEDS: PIPERACILLIN/TAZOBACTAM 3.375 GM in IV NORMAL SALINE 50ML 50 ML IV SCH ×4 (05:25→20:45)
--- NOTE | 2020-12-16 05:34 | NUR ---
Pt accidentally removed her IV. Pt refuses placement of new IV despite veterans rehabilitation counselor of need for antibiotics. Will continue to monitor.
[2020-12-16 06:10] VITALS: BP 133/75
[2020-12-16] MEDS: POTASSIUM CHLORIDE 20 MEQ TABLET.ER. PO SCH ×2 (09:00→20:45)
[2020-12-16] MEDS: LACTOBACILLUS RHAMNOSUS GG 1 CAPSULE. PO SCH ×2 (09:29→20:44)
[2020-12-16] MEDS: FENOFIBRATE NANOCRYSTALLIZED 145 MG TABLET PO SCH (09:29)
[2020-12-16] MEDS: PANTOPRAZOLE 40 MG TABLET. PO SCH (09:29)
[2020-12-16] MEDS: AZITHROMYCIN 250 MG TABLET. PO SCH (09:29)
[2020-12-16] MEDS: CITALOPRAM 20 MG TABLET. PO SCH (09:29)
[2020-12-16] MEDS: buPROPion SR 150 MG TABLET.SA PO SCH ×2 (09:29→20:44)
[2020-12-16] MEDS: EZETIMIBE 10 MG TABLET PO SCH (09:29)
[2020-12-16] MEDS: NICOTINE 21MG PATCH. TD SCH (09:30)
[2020-12-16] MEDS: methylPREDNISolone SOD SUCC PF 40 MG/ML VIAL. IV SCH ×2 (09:30→20:45)
[2020-12-16] MEDS: DOXEPIN HCL 25 MG CAPSULE PO SCH ×3 (09:30→20:44)
[2020-12-16] MEDS: IPRATROPIUM/ALBUTEROL 20/100mcg/INH INHALER. INH SCH ×4 (09:31→20:00)
[2020-12-16 10:56] VITALS: BP 132/66
[2020-12-16 15:00] VITALS: BP 115/62
[2020-12-16 18:23] VITALS: BP 100/71
--- NOTE | 2020-12-16 18:35 | NUR ---
pt was on 4.5 l nc this morning, attempted to wean o2, pt wanted to take it off and take a break, ship pilot was coming down the nina doing vitals, removed o2, pt was in no distress but o2 was 84% on ra. pt reapplied to 2 l nc, pt spo2 increased. pt continues to take o2 off and on all day. pt did not want an iv, dr vega talked her into one, but she only wanted it in the ac, right ac 22 g inserted. pt very particular about certain things.
[2020-12-16] MEDS: ATORVASTATIN CALCIUM 20 MG TABLET PO SCH (20:44)
[2020-12-16] MEDS: ENOXAPARIN 40 MG/0.4 ML SYRINGE. SQ SCH (20:45)
--- NOTE | 2020-12-16 22:51 | PN ---
DATE: 12/16/2020 SUBJECTIVE: The patient is resting fairly comfortably, although she is not in particularly good mood. IV came out, at first refused to have her IV put back in, finally convinced her. Since she does have a pneumonic process, she is still quite hypoxic on room air 86%. We are trying to get her oxygen set up, but it has been difficult over the weekend, so we will need to continue to monitor that plus she needs continued IV antibiotic therapy. OBJECTIVE: VITAL SIGNS: Blood pressure 132/66, respiratory rate 20, pulse 104. She is presently afebrile, but 86% on room air, 95% on 4 liters, so oxygen would be critical. GENERAL: The patient otherwise is alert and oriented. LUNGS: Diminished, poor movement of air, but better than they have been in terms of moving air throughout. CARDIOVASCULAR: Regular sinus rhythm. S1, S2, somewhat tachycardic at times about 100. ABDOMEN: Soft, diffuse tenderness. No rebound or guarding. Positive bowel sounds, no hepatosplenomegaly was noted. EXTREMITIES: No clubbing, cyanosis, nor edema. Tried to cheer the patient up a little bit, she has been in and out of the hospital for some time and is becoming somewhat discouraged by the overall situation as indicated above. The patient will continue to be monitored carefully and continue on IV antibiotic therapy for the situation at hand. She is on Zithromax and Rocephin. Seems to be making good progress in that regard. She is on Decadron. We cut it down to twice a day. She is on Zosyn antibiotic for possible coverage of any institutional pneumonia, acute respiratory failure. IMPRESSION: Acute respiratory failure, bilateral multifocal pneumonia, hypoxia, moderate protein malnutrition, history of tobacco and nicotine abuse. We will go ahead and continue to bring these situations under control. PLAN: Continue on IV antibiotic therapy, convince her to have an IV placed in her arm, not in her hand and make further adjustments on all her other medications as indicated. SHREE/TRISHA/GRIFFIN DR: Sudhir TID: [id number]
[2020-12-16 23:08] VITALS: BP 122/74
[2020-12-17] MEDS: PIPERACILLIN/TAZOBACTAM 3.375 GM in IV NORMAL SALINE 50ML 50 ML IV SCH (06:30)
[2020-12-17 07:00] VITALS: BP 118/72
[2020-12-17] MEDS: EZETIMIBE 10 MG TABLET PO SCH (08:54)
[2020-12-17] MEDS: CITALOPRAM 20 MG TABLET. PO SCH (08:54)
[2020-12-17] MEDS: FENOFIBRATE NANOCRYSTALLIZED 145 MG TABLET PO SCH (08:54)
[2020-12-17] MEDS: LACTOBACILLUS RHAMNOSUS GG 1 CAPSULE. PO SCH (08:54)
[2020-12-17] MEDS: methylPREDNISolone SOD SUCC PF 40 MG/ML VIAL. IV SCH (08:54)
[2020-12-17] MEDS: AZITHROMYCIN 250 MG TABLET. PO SCH (08:54)
[2020-12-17] MEDS: PANTOPRAZOLE 40 MG TABLET. PO SCH (08:54)
[2020-12-17] MEDS: buPROPion SR 150 MG TABLET.SA PO SCH (08:54)
[2020-12-17] MEDS: DOXEPIN HCL 25 MG CAPSULE PO SCH (08:55)
[2020-12-17] MEDS: POTASSIUM CHLORIDE 20 MEQ TABLET.ER. PO SCH (08:55)
[2020-12-17] MEDS: NICOTINE 21MG PATCH. TD SCH (08:56)
[2020-12-17] MEDS ORDERED: CEFP200T PO (10:34)
[2020-12-17] MEDS ORDERED: AZIT250T6 PO (10:34)
[2020-12-17] MEDS ORDERED: IPRA3AMP29 NEB (10:34)
[2020-12-17] MEDS ORDERED: PRED20TA PO (10:34)
--- NOTE | 2020-12-17 10:36 | DISCH ---
HOME HEALTH DISCHARGE/MEDS DISCHARGE INFORMATION: Discharge Date: Dec 17, 2020 Final Diagnosis: Pneumonia hypoxia COPD Condition on Discharge: Stable CODE STATUS: Code Status: Full HOME HEALTH: Face to Face: I certify this patient is under my care and that I, or a nurse practitioner or physician's assistant hairstylist working with me, had a face to face encounter that meets the physician face to face encounter requirements with this patient on December 17, 2020. Medical Condition(s): COPD, HTN, Pneumonia Group Home For: Assess Cardiopulm Status, Assess & Educate Safety, Assess/Skilled Observatio, Medication Management Physical Therapy For: Evalulation/Treatment Homebound Status Met By: Unsteady balance w/ amb, POST DISCHARGE ORDERS: Activity Instructions for Disc: Activity as tolerated Weight Bearing Status after Di: No restrictions DIET AFTER DISCHARGE: Cardiac CERTIFICATION STATEMENT: Certification Statement: Based on the above finding, I certify that this patient is confined to the home and needs intermittent shelter care, physical therapy and/or speech therapy, or continues to need occupational therapy.~ This patient is under my care, and I have initiated the establishment of the plan of care.~ This patient will be followed by myself or a community physician who will periodically review the plan of care. DISCHARGE MEDICATIONS: Home Meds Active Scripts Prednisone (PREDNISONE) 10 Mg Tablet, 10 MG PO DAILY for asthma for 20 Days, #20 TAB Prov:MILAD STRAUSS MD 12/08/20 [Nicotine 21MG Patch] 1 PATCH PATCH No Conflict Check, 1 PATCH TD DAILY for smoking for 30 Days, #30 Prov:MILAD STRAUSS MD 12/08/20 Ipratropium/Albuterol Sulfate (COMBIVENT RESPIMAT INHAL) 4 Gm Aer.w.adap, 1 PUFF INH RTQID for asthma for 30 Days, #30 INH Prov:MILAD STRAUSS MD 12/08/20 Azithromycin (AZITHROMYCIN TABLET) 250 Mg Tablet, 250 MG PO DAILY for covid for 5 Days, #5 TAB Prov:MILAD STRAUSS MD 12/08/20 Reported Medications Doxepin Hcl (DOXEPIN HCL) 25 Mg Capsule, 1 CAP PO TID for . 12/06/20 Potassium Chloride (POTASSIUM CHLORIDE ) 20 Meq Tablet.er, 20 MEQ PO BID for SUPPLEMENT, TAB 12/06/20 Fenofibrate (FENOFIBRATE) 160 Mg Tablet, 1 TAB PO BID for ., #30 TAB 5 Refills 12/06/20 Alprazolam (ALPRAZOLAM) 0.5 Mg Tablet, 1 TAB PO PRN DAILY PRN for ANXIETY / AGITATION, #30 TAB 12/06/20 Pantoprazole Sodium (PANTOPRAZOLE SODIUM) 40 Mg Tablet.dr, 1 TAB PO DAILY for ., #30 TAB 3 Refills 12/06/20 Ezetimibe (ZETIA) 10 Mg Tablet, 10 MG PO DAILY for unknown, TAB 12/06/19 Escitalopram Oxalate (ESCITALOPRAM OXALATE) 10 Mg Tablet, 10 MG PO DAILY for ANTI-DEPRESSANT, #30 TAB 0 Refills 12/06/19 Bupropion Hcl (BUPROPION HCL SR) 150 Mg Tablet.er, 1 TAB PO BID, #60 TAB 2 Refills 11/05/15 Atorvastatin Calcium (ATORVASTATIN CALCIUM) 40 Mg Tablet, 40 MG PO QHS for FOR CHOLESTEROL, #30 TAB 0 Refills 11/05/15 MILAD STRAUSS MD Dec 17, 2020 10:36
--- NOTE | 2020-12-17 12:10 | NUR ---
Nursing Note Discharge Pt accompanied by staff via wheelchair to private vehicle. Pt sent home with oxygen from [facility]. Pt educated on importance of calling the oxygen company when she gets home. Pt A&Ox4 and stable.
--- NOTE | 2020-12-17 19:04 | DS ---
DATE OF DISCHARGE: 12/17/2020 HOSPITAL COURSE: This 65-year-old female with COVID-19 pneumonia, was discharged today. She came in with acute respiratory failure, relapse of her COVID-19 and exacerbation of her COPD with an infection. Obviously, the patient's x-rays demonstrated a multifocal pneumonia along with her respiratory failure with oxygen saturations in the low 80s. The patient will be discharged home. Followup as an outpatient. She received steroids, aggressive pulmonary toilet. Of course, she was on Zosyn and azithromycin. She has been making excellent progress with the combination of those drugs. By the time of discharge, the last blood pressure was , respiration 18, pulse 70, afebrile. She still required 4.5 L, maintaining in the low 80s. She has a nebulizer at home. She needs to be on DuoNeb there as well on a regular diet. Told to stay in isolation. No smoking. IMPRESSION: Multilobar pneumonia secondary to COVID-19, exacerbation of chronic obstructive pulmonary disease with infectious process. COVID-19, acute respiratory failure secondary to COVID-19, chronic kidney disease stage IIIA, slight elevation of liver enzymes, AST of 62, albumin 3.1, moderate protein malnutrition. PLAN: Continue to monitor patient accordingly. She will be discharged home and followed up as an outpatient and make further evaluation. She will need oxygen. See discharge summary. Regular diet. SHREE/TRISHA/FRANCINE DR: SHREE/jamie TID: [id number]
== END 2020-12-17 12:12 | disposition home health service (06) | DRG 871 ==
LOC: ER 11:39 → 1 SOUTH 14:48 → ER 19:21
PROVIDERS: ADMIT Family Medicine; ATTEND Family Medicine
DX: A41.9 Sepsis, unspecified organism (principal); U07.1 COVID-19; J12.82 Pneumonia due to coronavirus disease 2019; J96.01 Acute respiratory failure with hypoxia; E44.0 Moderate protein-calorie malnutrition; F41.9 Anxiety disorder, unspecified; F32.9 Major depressive disorder, single episode, unspecified; K21.9 Gastro-esophageal reflux disease without esophagitis; E78.00 Pure hypercholesterolemia, unspecified; J43.9 Emphysema, unspecified; F17.210 Nicotine dependence, cigarettes, uncomplicated; N18.31 Chronic kidney disease, stage 3a; Z86.73 Personal history of transient ischemic attack (TIA), and cerebral infarction without residual deficits; Z90.710 Acquired absence of both cervix and uterus; Z90.49 Acquired absence of other specified parts of digestive tract; Z86.711 Personal history of pulmonary embolism; Z82.5 Family history of asthma and other chronic lower respiratory diseases; Z82.49 Family history of ischemic heart disease and other diseases of the circulatory system; Z80.8 Family history of malignant neoplasm of other organs or systems; Z80.3 Family history of malignant neoplasm of breast; I25.2 Old myocardial infarction; Z68.31 Body mass index [BMI] 31.0-31.9, adult
CPT/HCPCS: 36415; 71045; 71046; 71275; 80053; 83605; 83735; 83880; 84484; 85025; 85379; 87040; 93005; 96374; J0456; J0696; J1100; J1650; J2543; J2920; J7050; Q9967; 99285-25